=== PATIENT | male | born 1980 | race African-American/Black ===

== ENCOUNTER 2016-09-15 11:54 | Emergency (ER) | payer OTHER ==
[~2016-09-15] VITALS: Ht 180.3 cm; Wt 75.0 kg
[~2016-09-15 11:54] MED LIST: METO25 PO; TUMS500C PO
[2016-09-15] MEDS ORDERED: OLANZapine IM 10 MG VIAL IM ONE ×2 (12:17→13:00)
[2016-09-15] MEDS ORDERED: LORazepam 2 MG/ML VIAL ONE (12:20)
[2016-09-15] MEDS ORDERED: diphenhydrAMINE HCL 50 MG/ML VIAL ONE (12:21)
[2016-09-15 12:41] VITALS: BP 119/77; PULSE 68; RESP 18; TEMP 99.3; O2SAT 64; O2SAT 97
[2016-09-15] MEDS ORDERED: LORazepam 2 MG TAB PO ONE (12:45)
[2016-09-15] MEDS ORDERED: diphenhydrAMINE HCL 50 MG CAP PO ONE (12:45)
[2016-09-15] MEDS ORDERED: OLANZapine ODT 10 MG TAB PO ONE (12:45)
[2016-09-15] MEDS ORDERED: LORazepam 2 MG/ML VIAL IM ONE ×2 (13:00→19:30)
[2016-09-15] MEDS ORDERED: diphenhydrAMINE HCL 50 MG/ML VIAL IM ONE (13:00)
--- NOTE | 2016-09-15 14:08 | PD ---
HPI Chief Complaint: Psychiatric Symptoms Time Seen by Provider: 14:06 Travel History International Travel<30 days: No Contact w/Intl Traveler<30days: No History of Present Illness HPI Patient comes under Cam act by police for having command hallucinations or Cam act. Patient is currently chemically restrained and unable to contribute to his history thus limiting H&P. [facility] Past Medical History Cancer: No Cardiovascular Problems: No Endocrine: No Genitourinary: No Immune Disorder: No Musculoskeletal: No Neurologic: No Psychiatric: No Reproductive: No Respiratory: No Social History Tobacco Use: No Substance Use: Yes (positive for cocaine and canabinoids) Allergies-Medications (Allergen,Severity, Reaction): Uncoded Allergies: UNKNOWN (Allergy, Unknown, 09/15/16) Per RN - 09/15/16. Reported Meds & Prescriptions Reported Meds & Active Scripts Active No Active Prescriptions or Reported Medications Review of Systems ROS Limitations: Other: (chemically restrained) Except as stated in HPI: all other systems reviewed are Neg Physical Exam Exam Limitations: Other: (chemically restrained) Narrative GENERAL: Well-developed, well nourished, in no acute distress, and non-ill appearing. Sleeping comfortably in bed. SKIN: Focused skin assessment warm and dry. HEAD: Atraumatic. Normocephalic. EYES: Pupils equal and round. EOMI. No scleral icterus. No injection or drainage. ENT: No nasal bleeding or discharge. Mucous membranes pink and moist. NECK: Trachea midline. No JVD. Supple. No nuclear rigidity. CARDIOVASCULAR: Regular rate and rhythm. No murmur appreciated. RESPIRATORY: No accessory muscle use. No respiratory distress. Clear to auscultation. Breath sounds equal bilaterally. MUSCULOSKELETAL: No obvious deformities. No clubbing. No cyanosis. No edema. NEUROLOGICAL: No obvious cranial nerve deficits. Data Data Last Documented VS Vital Signs Date Time Temp Pulse Resp B/P Pulse Ox O2 Delivery O2 Flow Rate FiO2 09/15/16 12:41 99.3 68 18 119/77 97 Room Air Orders Psych Screen (09/15/16 12:14) Olanzapine Inj (Zyprexa Inj) (09/15/16 12:17) Lorazepam Inj (Ativan Inj) (09/15/16 12:20) Diphenhydramine Inj (Benadryl Inj) (09/15/16 12:21) Olanzapine Inj (Zyprexa Inj) (09/15/16 13:00) Diphenhydramine Inj (Benadryl Inj) (09/15/16 13:00) Lorazepam Inj (Ativan Inj) (09/15/16 13:00) Complete Blood Count With Diff (09/15/16 14:05) Comprehensive Metabolic Panel (09/15/16 14:05) Drug Screen, Random Urine (09/15/16 14:05) Alcohol (Ethanol) (09/15/16 14:05) Salicylates (Aspirin) (09/15/16 14:05) Tylenol (Acetaminophen) (09/15/16 14:05) Diet Regular Basic (09/15/16 Dinner) Labs Laboratory Tests Test 09/15/16 09/15/16 14:25 15:18 Urine Opiates Screen NEG Urine Barbiturates Screen NEG Urine Amphetamines Screen NEG Urine Benzodiazepines Screen NEG Urine Cocaine Screen NEG Urine Cannabinoids Screen POS White Blood Count 7.8 TH/MM3 Red Blood Count 4.50 MIL/MM3 Hemoglobin 13.9 GM/DL Hematocrit 42.7 % Mean Corpuscular Volume 95.0 FL Mean Corpuscular Hemoglobin 31.0 PG Mean Corpuscular Hemoglobin 32.6 % Concent Red Cell Distribution Width 14.7 % Platelet Count 180 TH/MM3 Mean Platelet Volume 9.4 FL Neutrophils (%) (Auto) 67.0 % Lymphocytes (%) (Auto) 19.5 % Monocytes (%) (Auto) 8.9 % Eosinophils (%) (Auto) 1.5 % Basophils (%) (Auto) 3.1 % Neutrophils # (Auto) 5.3 TH/MM3 Lymphocytes # (Auto) 1.5 TH/MM3 Monocytes # (Auto) 0.7 TH/MM3 Eosinophils # (Auto) 0.1 TH/MM3 Basophils # (Auto) 0.2 TH/MM3 CBC Comment DIFF FINAL Differential Comment Sodium Level 139 MEQ/L Potassium Level 5.4 MEQ/L Chloride Level 108 MEQ/L Carbon Dioxide Level 24.6 MEQ/L Anion Gap 6 MEQ/L Blood Urea Nitrogen 7 MG/DL Creatinine 0.99 MG/DL Estimat Glomerular Filtration 104 ML/MIN Rate Random Glucose 83 MG/DL Calcium Level 9.1 MG/DL Total Bilirubin 1.1 MG/DL Aspartate Amino Transf 15 U/L (AST/SGOT) Alanine Aminotransferase 19 U/L (ALT/SGPT) Alkaline Phosphatase 94 U/L Total Protein 8.0 GM/DL Albumin 3.9 GM/DL Salicylates Level LESS THAN 1.7 MG/DL Acetaminophen Level LESS THAN 2.0 MCG/ML Ethyl Alcohol Level LESS THAN 3 MG/DL MDM Medical Decision Making Medical Screen Exam Complete: Yes Emergency Medical Condition: Yes Differential Diagnosis Homicidal, suicidal, delusional, substance abuse, other Narrative Course Patient was seen and examined. Labs were obtained and reviewed. Discussed patient with Dr. Menendez, who reviewed labs and is in agreement with plan of care. Patient medically cleared for further treatment and evaluation by psych. Final disposition per psych. Diagnosis Primary Impression: Medical clearance for psychiatric admission Scripts No Active Prescriptions or Reported Meds Condition: Stable Ranjit Hobbs Sep 15, 2016 14:08
[2016-09-15 15:02] LABS: AMPHETAMINE, URINE NEG (NEG); BARBITURATES, URINE NEG (NEG); COCAINE, URINE NEG (NEG)
[2016-09-15 15:29] LABS: AUTOMATED NEUTROPHIL # 5.3 TH/MM3 (1.8-7.7); BASOPHIL # 0.2 TH/MM3 (0-0.2); BASOPHIL % 3.1 % (0.0-2.0); EOSINOPHIL # 0.1 TH/MM3 (0-0.4); EOSINOPHIL % 1.5 % (0.0-4.0); HEMATOCRIT 42.7 % (39.0-51.0); HEMO FLAGS DIFF FINAL; LYMPH % 19.5 % (9.0-44.0); LYMPHOCYTE # 1.5 TH/MM3 (1.0-4.8); MEAN CORPUSCULAR HGB CONC 32.6 % (32.0-36.0); MONO % 8.9 % (0.0-8.0); PLATELET COUNT 180 TH/MM3 (150-450); RED CELL DISTRIBUTION WIDTH 14.7 % (11.6-17.2); WHITE BLOOD COUNT 7.8 TH/MM3 (4.0-11.0)
[2016-09-15 15:46] LABS: ALT (GPT) 19 U/L (12-78); ANION GAP 6 MEQ/L (5-15); AST (GOT) 15 U/L (15-37); BICARBONATE 24.6 MEQ/L (21.0-32.0); BLOOD UREA NITROGEN 7 MG/DL (7-18); CHLORIDE 108 MEQ/L (98-107); GLOMERULAR FILTRATION RATE 104 ML/MIN (>89); POTASSIUM 5.4 MEQ/L (3.5-5.1); SODIUM (NA) 139 MEQ/L (136-145)
[2016-09-15 15:48] LABS: ALKALINE PHOSPHATASE 94 U/L (45-117); TOTAL BILIRUBIN ADULT 1.1 MG/DL (0.2-1.0)
[2016-09-15 15:52] LABS: ACETAMINOPHEN LESS THAN 2.0 MCG/ML (10.0-30.0)
[2016-09-15 18:36] VITALS: BP 128/61; PULSE 53; RESP 16; TEMP 98.6; O2SAT 96
[2016-09-15 22:12] VITALS: RESP 18
[2016-09-16 02:17] VITALS: BP 103/69; PULSE 52; RESP 18; O2SAT 98
[2016-09-16 06:26] VITALS: BP 114/61; PULSE 58; RESP 18; O2SAT 100
[2016-09-16 11:37] VITALS: BP 135/81; PULSE 58; RESP 18; O2SAT 97
--- NOTE | 2016-09-16 11:40 | PD ---
History of Present Illness Chief Complaint: Psychiatric Symptoms Time Seen by Provider: 11:30 Travel History International Travel<30 Days: No Contact w/Intl Traveler<30days: No Known affected area: No Legal Status Legal Status: Cam Act Cam Act Signed By: JUAN WALDRON NP History of Present Illness: This is a 36-year-old male who was seen by this physician both yesterday and today. Yesterday he appeared psychotic with paranoid and bizarre thinking. He was highly agitated yesterday and required chemical restraint in the form of antipsychotic medication. Today he is significantly improved. He does not show evidence of psychosis. He is clear, logical and goal-directed in his speech. He denies any suicidal or homicidal ideation, plan or intention. His cognition is grossly intact. He states he is willing to take medication and seek follow up at [facility]. This physician is uncertain if the patient's psychosis yesterday was somehow drug induced or if there is an underlying thought disorder related to a major mental illness. In either event , he currently does not meet criteria for involuntary hospitalization and he wishes to go home. PFSH Past Medical History Medical History: Denies Significant Hx Cancer: No Cardiovascular Problems: No Endocrine: No Genitourinary: No Immune Disorder: No Medical other: Yes (TBI 2011) Musculoskeletal: No Neurologic: No Psychiatric: No Reproductive: No Respiratory: No Psychiatric History Psychiatric History Hx Psychiatric Treatment: UNKNOWN. ACCORDING TO [facility] HE HAS [facility] medical record reviewed and he does have a diagnosis of schizophrenia. Once again, however, it is unclear as to whether his symptoms were drug induced in the past or simply untreated schizophrenia. History of Inpatient Treatment: No Guns or firearms in home: No Social History Hx Alcohol Use: No Hx Tobacco Use: No Hx Substance Use: No Substance Use Type: Marijuana Other Substances Used: HX OF POLYSUBSTANCE Allergies-Medications (Allergen,Severity, Reaction): Uncoded Allergies: UNKNOWN (Allergy, Unknown, 09/15/16) Per RN - 09/15/16. Reported Meds & Prescriptions Reported Meds & Active Scripts Active No Active Prescriptions or Reported Medications Review of Systems ROS Limitations: Clinical Condition Exam Exam Limitations: Clinical Condition Alert: Yes [place]: Person, Place, Date, Situation Mood: Calm Affect: Appropriate Speech: Clear, Logical Eye Contact: Normal Memory Intact: Immediate, Remote Insight/Judgement Adequate at this time. MDM Medical Decision Making Medical Record Reviewed: Yes Assessment/Plan While the patient was highly agitated and appeared psychotic yesterday, he is much improved today. He is no longer agitated and in fact he is calm, pleasant and cooperative. All he demonstrated paranoid thinking yesterday he does not do so at the present time and states he is willing to take medication as an outpatient. He also reports he is willing to follow up in [facility]. Orders Psych Screen (09/15/16 12:14) Olanzapine Inj (Zyprexa Inj) (09/15/16 12:17) Lorazepam Inj (Ativan Inj) (09/15/16 12:20) Diphenhydramine Inj (Benadryl Inj) (09/15/16 12:21) Olanzapine Inj (Zyprexa Inj) (09/15/16 13:00) Diphenhydramine Inj (Benadryl Inj) (09/15/16 13:00) Lorazepam Inj (Ativan Inj) (09/15/16 13:00) Complete Blood Count With Diff (09/15/16 14:05) Comprehensive Metabolic Panel (09/15/16 14:05) Drug Screen, Random Urine (09/15/16 14:05) Alcohol (Ethanol) (09/15/16 14:05) Salicylates (Aspirin) (09/15/16 14:05) Tylenol (Acetaminophen) (09/15/16 14:05) Diet Regular Basic (09/15/16 Dinner) Lorazepam Inj (Ativan Inj) (09/15/16 19:30) Diet Regular Basic (09/16/16 Breakfast) Diet Regular Basic (09/16/16 Lunch) Results Vital Signs Date Time Temp Pulse Resp B/P Pulse Ox O2 Delivery O2 Flow Rate FiO2 09/16/16 06:26 58 18 114/61 100 Room Air 09/16/16 02:17 52 18 103/69 98 Room Air 09/15/16 22:59 18 09/15/16 22:12 18 Room Air 09/15/16 18:36 98.6 53 16 128/61 96 Room Air 09/15/16 12:41 99.3 68 18 119/77 97 Room Air Laboratory Tests Test 09/15/16 09/15/16 14:25 15:18 Urine Opiates Screen NEG Urine Barbiturates Screen NEG Urine Amphetamines Screen NEG Urine Benzodiazepines Screen NEG Urine Cocaine Screen NEG Urine Cannabinoids Screen POS White Blood Count 7.8 Red Blood Count 4.50 Hemoglobin 13.9 Hematocrit 42.7 Mean Corpuscular Volume 95.0 Mean Corpuscular Hemoglobin 31.0 Mean Corpuscular Hemoglobin 32.6 Concent Red Cell Distribution Width 14.7 Platelet Count 180 Mean Platelet Volume 9.4 Neutrophils (%) (Auto) 67.0 Lymphocytes (%) (Auto) 19.5 Monocytes (%) (Auto) 8.9 Eosinophils (%) (Auto) 1.5 Basophils (%) (Auto) 3.1 Neutrophils # (Auto) 5.3 Lymphocytes # (Auto) 1.5 Monocytes # (Auto) 0.7 Eosinophils # (Auto) 0.1 Basophils # (Auto) 0.2 CBC Comment DIFF FINAL Differential Comment Sodium Level 139 Potassium Level 5.4 Chloride Level 108 Carbon Dioxide Level 24.6 Anion Gap 6 Blood Urea Nitrogen 7 Creatinine 0.99 Estimat Glomerular Filtration 104 Rate Random Glucose 83 Calcium Level 9.1 Total Bilirubin 1.1 Aspartate Amino Transf 15 (AST/SGOT) Alanine Aminotransferase 19 (ALT/SGPT) Alkaline Phosphatase 94 Total Protein 8.0 Albumin 3.9 Salicylates Level LESS THAN 1.7 Acetaminophen Level LESS THAN 2.0 Ethyl Alcohol Level LESS THAN 3 Diagnosis Primary Impression: Medical clearance for psychiatric admission Additional Impression: Brief psychotic disorder Prescriptions No Active Prescriptions or Reported Meds Condition: Stable Problem Qualifiers Krishan Vicente MD Sep 16, 2016 11:40
[2016-09-16] MEDS ORDERED: ZYPR5TAB PO (11:41)
[2016-09-16 12:21] VITALS: BP 135/74; PULSE 78; RESP 18; O2SAT 98
== END 2016-09-16 12:45 | disposition home or self-care (01) ==
LOC: NEPJ 11:54
DX: F23 Brief psychotic disorder (principal); F12.90 Cannabis use, unspecified, uncomplicated; F14.90 Cocaine use, unspecified, uncomplicated
CPT/HCPCS: 80053; 80307; 85025; 96372; 99284; J1200; J2060